=== PATIENT | male | born 1960 | race Caucasian/White ===

== ENCOUNTER 2023-09-14 08:21 | Day surgery (SDC) | payer OTHER, SELFPAY ==
--- NOTE | 2023-09-14 | COLBX_PTH ---
PATIENT: BLANKA DOLAN LOC: EN U#:[id number] AGE/SX: 62/M ROOM: RE09/14/[address]: Dr. Bo Montilla MD : 1960 BED: DIS: 09/14/2023 SPEC #: [id number] RECD: 09/14/23 13:48 STATUS: MAGALI CORONADO #: [id number] JHONY: 09/14/23 00:[address]: Bo Montilla DEPT: SURGICAL PATHOLOGY RECD BY: Hang Russell ENTERED: 09/14/23 13:48 SP TYPE: COLON BX OTHR DR: Dr. Abdulaziz Sunshine MD Tissues: A - Cecum, NOS B - Sigmoid colon biopsy C - Rectum, NOS Procedures: Surgery Specimen Level IV HEADER OPERATION: Colonoscopy with biopsies and polypectomy PRE-OP DIAGNOSIS: Positive colorectal cancer screening using cologaurd TISSUE SUBMITTED: A- Cecum mucosal biopsy, B- Distal sigmoid colon polyp, C- Rectal mucosal nodule biopsy MICROSCOPIC DIAGNOSIS A. Cecum mucosal biopsy: Fragments of colonic mucosa, no pathologic diagnosis. B. Distal sigmoid colon, biopsy: Fragments of hyperplastic polyp. C. Rectal mucosal nodule, biopsy: Fragments of benign squamous mucosa. GALE/ 09/15/23 MICROSCOPIC DESCRIPTION Slides are reviewed. GROSS DESCRIPTION A. Received in fixative is one container labeled with the patient's name and designated Cecal mucosal biopsy. The specimen consists of multiple irregular fragments of light [place] soft tissue that measure in aggreate 0.8 x 0.2 x 0.1 cm. The specimen is totally submitted in one cassette. B. Received in fixative is one container labeled with the patient's name and designated Distal sigmoid colon polyp. The specimen consists of multiple irregular fragments of light [place] soft tissue that in aggregate measure 0.6 x 0.2 x 0.1 cm. The specimen is totally submitted in one cassette. C. Received in fixative is one container labeled with the patient's name and designated Rectal mucosal nodule biopsy. The specimen consists of multiple irregular fragments of light [place] soft tissue that in aggregate measure 0.6 x 0.2 x 0.1 cm. The specimen is totally submitted in one cassette. GAEL/ 09/14/23 TC:5 CPT:46224k7
[2023-09-14 08:56] VITALS: BP 158/62; PULSE 59; RESP 17; TEMP 36.7; O2SAT 100; BMI 23.1
[2023-09-14] MEDS: Lactated Ringers 1,000 ML 15 ML IV (08:56)
--- NOTE | 2023-09-14 10:18 | PCM.HP.BLA ---
History and Physical Date of Service: 07/17/23 MR#: [id number] Acct: [id number] Name: BLANKA MATIAS Rep #: [id number] : 1960 Provider: Dr. Bo Montilla MD Age/Sex: 62/M Location: [facility] Status: Signed Intake Vital Signs 07/17/2407:16 Height 5 ft 8 in Weight: 160 lb BMI 24.3 BP 149/78 H Blood Pressure Location Rt brachial Position Sitting Respiration 18 Pulse 78 Pulse Source Monitor Temp 97.8 F Temp Source Temporal Pulse Oximetry (%) 98 Oxygen Delivery Method room air Intake Visit Reasons: POSITIVE COLOGUARD Chief Complaint: positive cologuard Testing And Regulating Chief Required: No Is patient in pain?: No Allergies No Known Allergies Allergy (Unverified 07/17/23 08:17) Medications hydrochlorothiazide 12.5 mg capsule 12.5 mg PO QAM 07/17/23 [History Confirmed 07/17/23] lovastatin 40 mg tablet 40 mg PO DAILY 07/17/23 [History Confirmed 07/17/23] PFSH Surgical History (Updated 07/17/23 @ 08:15 by Deisi Ventura LPN) S/P hernia repair Social History (Updated 07/17/23 @ 08:16 by Deisi Ventura LPN) Smoking Status: Never smoker alcohol intake: current alcohol intake frequency: holidays/special occasions only substance use type: does not use HPI HPI HPI: Patient is a 62-year-old male who presents for need to schedule diagnostic colonoscopy secondary to positive Cologuard screening. They are referred for surgical consultation from FADI Bruno. Patient has had prior colonoscopy in 2012 which he recalls was normal and all of its findings in 10-year follow-up was given. This most recent testing represents his first Cologuard testing. He was initially convinced that it was positive on the account of his persistently high PSA testing (which is always led to additional testing that is always remain normal despite annual surveillance?including with MRI). They describe their bowel habits as normal. They have approximately 1-2 bowel movements per day without significant straining. They have not noticed recent bleeding or dark stools. They do not regularly take fiber supplements. They consume a moderate amount of fiber in their regular diet with foods such as oatmeal and salads. Patient has no family history of colon cancer, inflammatory bowel disease, or diverticulitis. The patient's weight is stable. The patient is not prescribed anticoagulants/blood thinners. Relevant prior abdominal surgical history includes: Bilateral inguinal hernia repairs Patient does have a significant history of GERD. He states that in the last 2 months his recommended that he begin pfyr-mdt-qrqcbmd omeprazole for his symptoms (she is a nurse) and this has resulted in complete resolution of his symptoms which she previously experienced at a frequency interval of 1-2 times per week. He states that he generally cuts out caffeine by 3 PM each afternoon simply due to its effects on his sleep quality, but has not cut out spicy foods and, in fact, he enjoys Italian food on an almost daily basis. He is not propping his head at night but does try to space bedtime from mealtime by have at least 3 hours. ROS General General: No weight change, appetite, fatigue, colon cancer, breast cancer or weakness HEENT HEENT: No difficulty swallowing, eye injury, eye surgery, swollen glands or hoarseness Endo Endocrine: No thyroid disease, diabetes mellitus, thyroid cancer, Hair loss, heat intolerance or cold intolerance Skin Skin: No rash or changing moles Musc Musculoskeletal: No back problems, arthritis, rheumatoid arthritis, gout or joint pain Cardio Cardiovascular: Yes high blood pressure; No murmur, pacemaker, heart disease, atrial fibrillation, heart attack, heart stent, palpitations, shortness of breat with exertion or chest pain Psych Psychiatric: No depression, anxiety or hearing voices Resp Respiratory: No shortness of breath, No sleep apnea, No cough, No COPD, No asthma, No emphysema and No wheezing Gastro Gastrointestinal: No abdominal pain, No nausea or vomiting, No diarrhea, No constipation, No blood in stool, Yes acid reflux, No hemorrhoids, No ulcers, No gallbladder problem and No black,tarry stools James Hematologic: No blood thinners, No blood disorders, No bleeding, No anemia and No blood clots Neuro Neurologic: No tingling and No weakness Exam Const General: cooperative, comfortable and no acute distress Orientation: alert, awake and oriented x3 Resp Effort & Inspection: normal respiratory effort GI Other: Slender, no scars, nondistended, soft, nontender to palpation x 4 quadrants Assessment and Plan Assessment and Plan (1) Positive colorectal cancer screening using Cologuard test: Status: Acute Comment: Patient is a 62-year-old male, who is at average risk for colon cancer per history, who presents for follow-up of a positive Cologuard test. He has a history of prior negative colonoscopy 11 years ago and denies any new changes to his bowel habits. He suggest that he was under the impression that his positive PSA testing could have led to a false positive with his Cologuard testing. I have shared with him that I am unaware of a connection between these 2 tests and instead informed him of the importance of following up with positive Cologuard test with colonoscopy. Given that he is familiar with the procedure we simply reviewed the procedure and a high level and discussed need to proceed with a 2-day bowel prep and the expectations around the procedure itself. At the conclusion of this description Mr. Matias denied any further questions. Plan: Plan will be to complete colonoscopy on first mutually agreeable date under local MAC. Pre-procedure prep discussed and paper instructions provided. Patient is also made aware that he will need to have a transit bus driver with him the day of the procedure. (2) GERD (gastroesophageal reflux disease): Status: Acute Comment: Patient with history of gastroesophageal reflux that appears to be well-managed since starting PPI medication daily. Patient denies any symptoms since initiating ugif-pai-wrmzkby omeprazole dosing. He confirms that he is taking this on a daily basis. With this complete symptomatic response I find no indication to pursue EGD concurrent with planned colonoscopy as above I have examined the patient and the H&P has been reviewed. There are no clinical changes since date of exam. Mr. Matias confirms that he has not experienced any changes to his bowel habits. He does confirm that he completed bowel prep in anticipation of today's procedure. He also reports that his output is clear but colored yellow/orange. He denies any questions about our plans today. Will therefore proceed to endoscopy suite for diagnostic colonoscopy following positive Cologuard testing.
[2023-09-14 11:00] VITALS: BP 126/65; BP 158/62; PULSE 80; RESP 16; TEMP 36.3; O2SAT 98
--- NOTE | 2023-09-14 11:02 | OP.COLON_ITS ---
Patient Name: Etienne Matias Procedure Date: 09/14/2023 10:09 AM Date of : 1960 Age: 62 Procedure: Colonoscopy Indications: Positive Cologuard test Providers: Bo Montilla MD Referring MD: Abdulaziz Sunshine Medicines: See the Anesthesia note for documentation of the administered medications Patient Profile: Refer to note in patient chart for documentation of history and physical. Last Colonoscopy: more than 10 years ago. Complications: No immediate complications. Estimated blood loss: Minimal. Procedure: Pre-Anesthesia Assessment: - The heart rate, respiratory rate, oxygen saturations, blood pressure, adequacy of pulmonary ventilation, and response to care were monitored throughout the procedure. After I obtained informed consent, the scope was passed under direct vision. Throughout the procedure, the patient's blood pressure, pulse, and oxygen saturations were monitored continuously. The Colonoscope was introduced through the anus and advanced to the cecum, identified by appendiceal orifice and ileocecal valve. The colonoscopy was performed without difficulty. The patient tolerated the procedure well. The quality of the bowel preparation was good. Scope In: 10:25:36 AM Scope Withdrawal Time 0 hours 22 minutes 6 seconds Scope Out: 10:53:52 AM Total Procedure Duration Time 0 hours 28 minutes 16 seconds Findings: The ileocecal valve was moderately lipomatous. No biopsies or other specimens were collected for this exam. A localized area of mildly erythematous mucosa was found in the cecum. Biopsies were taken with a cold forceps for histology. Estimated blood loss was minimal. An 8 mm, non-bleeding polyp was found in the distal sigmoid colon. The polyp was semi-pedunculated. The polyp was removed with a hot snare. Resection and retrieval were complete. Estimated blood loss: none. One 7 mm mucosal nodule was found in the rectum. Biopsies were taken with a cold forceps for histology. Estimated blood loss was minimal. The digital rectal exam findings include enlarged prostate. Pertinent negatives include normal sphincter tone. Impression: - Lipomatous ileocecal valve. No specimens collected. - Erythematous mucosa in the cecum. Biopsied. - One 8 mm, non-bleeding polyp in the distal sigmoid colon, removed with a hot snare. Resected and retrieved. - Mucosal nodule in the rectum. Biopsied. - Enlarged prostate found on digital rectal exam. Recommendation: - Discharge patient to home (via wheelchair). - Resume previous diet today. - No aspirin, ibuprofen, naproxen, or other non-steroidal anti-inflammatory drugs for 2 days after biopsy. - Await pathology results. - Repeat colonoscopy date to be determined after pending pathology results are reviewed for surveillance based on pathology results. - Telephone my office for pathology results in 1 week. Procedure Code(s): --- Professional --- 73322, Colonoscopy, flexible; with removal of tumor(s), polyp(s), or other lesion(s) by snare technique 44355, 59, Colonoscopy, flexible; with biopsy, single or multiple Diagnosis Code(s): --- Professional --- K63.89, Other specified diseases of intestine D12.5, Benign neoplasm of sigmoid colon K62.89, Other specified diseases of anus and rectum R19.5, Other fecal abnormalities N40.0, Benign prostatic hyperplasia without lower urinary tract symptoms CPT copyright 2021 [employer]. All rights reserved. The codes documented in this report are preliminary and upon pre coder review may be revised to meet current compliance requirements. Bo Montilla MD 09/14/2023 11:01:34 AM This report has been signed electronically. Number of Addenda: 0 Note Initiated On: 09/14/2023 10:09 AM
--- NOTE | 2023-09-14 11:02 | OP.CCLET_ITS ---
09/14/2023 Abdulaziz Sunshine [address] [place] [address] [place] [address] Re : Colonoscopy procedure for Etienne Polly Dear Dr. Sunshine This procedure was performed on August. My impressions and recommendations are as follows: Impressions : - Lipomatous ileocecal valve. No specimens collected. - Erythematous mucosa in the cecum. Biopsied. - One 8 mm, non-bleeding polyp in the distal sigmoid colon, removed with a hot snare. Resected and retrieved. - Mucosal nodule in the rectum. Biopsied. - Enlarged prostate found on digital rectal exam. Recommendations : - Discharge patient to home (via wheelchair). - Resume previous diet today. - No aspirin, ibuprofen, naproxen, or other non-steroidal anti-inflammatory drugs for 2 days after biopsy. - Await pathology results. - Repeat colonoscopy date to be determined after pending pathology results are reviewed for surveillance based on pathology results. - Telephone my office for pathology results in 1 week. My findings are described in the full procedure note, which is enclosed. If I can be of further assistance, please feel free to contact me at Doctor phone number(s): , Work: . Sincerely, Bo Montilla MD 09/14/2023 11:01:34 AM This report has been signed electronically.
[2023-09-14 11:05] VITALS: BP 119/66; BP 158/62; PULSE 81; RESP 16; O2SAT 98
[2023-09-14 11:10] VITALS: BP 135/62; BP 158/62; PULSE 72; RESP 16; TEMP 36.1; O2SAT 99
[2023-09-14 11:30] VITALS: BP 158/62
== END 2023-09-14 11:32 | disposition home or self-care (01) ==
LOC: EN 08:23 → AC 08:23
PROVIDERS: PCP Family Medicine; Referring Provider Family Medicine; Visit Provider Surgery
PROC: 0DJD8ZZ Inspection of Lower Intestinal Tract, Via Natural or Artificial Opening Endoscopic (ICD-10-PCS; CPT 45378; principal; 2023-09-14 09:25)
DX: D12.5 Benign neoplasm of sigmoid colon (principal); N40.0 Benign prostatic hyperplasia without lower urinary tract symptoms; K63.89 Other specified diseases of intestine; K62.89 Other specified diseases of anus and rectum; R19.5 Other fecal abnormalities; K21.9 Gastro-esophageal reflux disease without esophagitis
CPT/HCPCS: 45385; 45380; 88305; J7120; J2405

== ENCOUNTER → 2025-02-17 | Outpatient (CLI) | payer OTHER, SELFPAY ==
--- OUTSIDE RECORDS SUMMARY | 2025-02-12 02:50 | XMS RPT_ITS ---
Author Name Auto Generated Organization [facility] Care Team Providers Care Cia Agent Name Role Phone FRANCISCO MEDINA Admitting Unavailable SP NUNN Consulting Unavailable [place] [facility] Primary Care Unavailable [facility] Attending Unavailable PROVIDER, UNKNOWN Consulting Unavailable PROVIDER, UNKNOWN Consulting Unavailable PROVIDER, UNKNOWN Consulting Unavailable [place] Admitting Unavailable [facility] Primary Care Unavailable [place] FRANCISCO Attending Unavailable SP NUNN Consulting Unavailable PROVIDER, UNKNOWN Consulting Unavailable PROVIDER, UNKNOWN Consulting Unavailable PROVIDER, UNKNOWN Consulting Unavailable Tito GREGG Attending Unavailable SP NUNN Consulting Unavailable SP NUNN Referring Unavailable Tito GREGG Admitting Unavailable Tito GREGG Primary Care Unavailable PROVIDER, UNKNOWN Consulting Unavailable PROVIDER, UNKNOWN Consulting Unavailable PROVIDER, UNKNOWN Consulting Unavailable PROBLEMS DATE TYPE CONDITION / CODE ATTENDING STATUS [facility] 07/01/2024 Principle Diagnosis Mixed hyperlipidemia / E782(ICD-10) FRANCISCO MEDINA Active 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(ICD-10) [place] [facility] 07/01/2024 Secondary Diagnosis Encounter for screening for malignant neoplasm of prostate / Z125(ICD-10) [facility] PROCEDURES No Procedure Records Found RESULTS PSA TOTAL 86449 (CANCER/ELEVATED) Colle cted: 02/12/2025 8:07 AM Status: F Source: [facility] TYPE CODE TESTS RESULT OUT OF RANGE REFERENCE UNITS LAB PSA(LOINC) PSA <0.13 0.00 - 4.00 ng/ml Performed By: #### [id number] ## ## [place] [id number] TIBIA-FIBULA LT Observed: 09/11/2024 3:37 PM Status: F Source: [place] [id number] Patient: BLANKA DOLAN Phone#: : 1960 Age: 63 Gender: M Pt. Type: Out Account: [id number] Location: Ordering: [facility] Exam Date: 09/11/2024/15:18 Family Phys: SP NUNN Charge Code: [id number] Physician: Faulk Order #: [id number] Dose#: PROCEDURE: X-RAY TIB FIB LT 2 VIEWS COMPARISON: None. INDICATIONS: Left leg pain. FINDINGS: BONES: Normal. No significant arthropathy or acute abnormality. SOFT TISSUES: Negative. No visible soft tissue swelling. EFFUSION: None visible. OTHER: Negative. CONCLUSION: No acute disease. Dictated by: Althea Walker MD on 09/11/2024 at 16:46 Approved by: Althea Walker MD on 09/11/2024 at 16:47 LUMBO SACRAL COMPLETE MIN 4 VIEWS Observed: 09/11/2024 3:36 PM Status: F Source: [place] [address] Patient: BLANKA DOLAN Phone#: : 1960 Age: 63 Gender: M Pt. Type: Out Account: [id number] Location: Ordering: [facility] Exam Date: 09/11/2024/15:21 Family Phys: SP NUNN Charge Code: [id number] Physician: Faulk Order #: [id number] Dose#: PROCEDURE: X-RAY LUMBAR SPINE COMPLETE MIN 4 VIEWS COMPARISON: None. INDICATIONS: Low back pain. FINDINGS: BONES: Mild to moderate degenerative changes of the spine are present most marked at the L5-S1 level. DISC SPACES: Disc space narrowing is present at the L4-5 and L5-S1 levels. Vacuum phenomenon is present at L5-S1. PARASPINOUS: Negative. No paraspinous abnormality is seen. OTHER: Negative. CONCLUSION: 1. Wppq-hg-bhcwvzsf degenerative changes of the spine are present. 2. There is no evidence of acute abnormality. Dictated by: Althea Walker MD on 09/11/2024 at 16:47 Approved by: Althea Walker MD on 09/11/2024 at 16:48 KNEE COMPLETE LT MIN 4 VIEWS Observed: 0 09/11/2024 3:35 PM Status: F Source: [place] [address] Patient: BLANKA DOLAN Phone#: : 1960 Age: 63 Gender: M Pt. Type: Out Account: [id number] Location: Ordering: [facility] Exam Date: 09/11/2024/15:06 Family Phys: SP NUNN Charge Code: [id number] Physician: Faulk Order #: [id number] Dose#: PROCEDURE: X-RAY KNEE LT COMPLETE 4 VIEWS COMPARISON: None. INDICATIONS: Left leg pain. FINDINGS: BONES: Normal. No significant arthropathy or acute abnormality. SOFT TISSUES: Negative. No visible soft tissue swelling. EFFUSION: Small suprapatellar joint effusion is present. OTHER: Negative. CONCLUSION: No acute disease. Dictated by: Althea Walker MD on 09/11/2024 at 16:36 Approved by: Althea Walker MD on 09/11/2024 at 16:36 CMP WITH EGFR Collected: 8:15 AM Status: F Source: [facility] TYPE CODE TESTS RESULT OUT OF RANGE REFERENCE UNITS LAB CMP with eGFR(LOINC) CMP with eGFR Result Comment: COMPREHENSIV E METABOLIC PANEL LAB SODIUM(LOINC) SODIUM 139 136 - 145 mmol/l LAB POTASSIUM(LOIN C) POTASSIUM 4.3 3.5 - 5.1 mmol/L LAB CHLORIDE(LOINC ) CHLORIDE 100 98 - 107 mmol/L LAB CO2(LOINC) CO2 29.1 21.0 - 32.0 mmol/L LAB GLUCOSE(LOINC) GLUCOSE 88 74 - 106 mg/dl LAB BUN(LOINC) BUN 16 7 - 18 mg/dl LAB CREATININE(BENIGNO NC) CREATININE 1.21 0.70 - 1.30 mg/dl LAB AST/SGOT(LOINC ) AST/SGOT 27 15 - 37 U/L LAB ALK PHOS(LOINC) ALK PHOS 98 46 - 116 U/L LAB CALCIUM(LOINC) CALCIUM 9.6 8.5 - 10.1 mg/dl LAB TOTAL PROTEIN(LOINC) TOTAL PROTEIN 8.5 High 6.4 - 8.2 g/dl LAB ALBUMIN(LOINC) ALBUMIN 4.1 3.4 - 5.0 g/dL LAB GLOBULIN(LOINC ) GLOBULIN 4.4 High 1.5 - 3.8 G/DL LAB A/G RATIO(LOINC) A/G RATIO 0.9 0.9 - 1.6 LAB TOTAL BILI(LOINC) TOTAL BILI 0.9 0.2 - 1.0 mg/dl LAB B/C RATIO(LOINC) B/C RATIO 13 0 - 30 ratio LAB ALT/SGPT(LOINC ) ALT/SGPT 25 16 - 63 U/L LAB ANION GAP(LOINC) ANION GAP 14 10 - 20 mmol/L LAB AGE(LOINC) AGE 63 years LAB eGFR(LOINC) eGFR 60 60 - 999 ML/MINUT E LAB eGFR(AA)(LOINC ) eGFR(AA) >60 60 - 999 ML/MINUT E Result Comment: ACCORDING TO THE NATIONAL KIDNEY DISEASE EDUCATION PROGRAM(NKDE), A NORMAL eGFR IS A VALUE GREATER THAN OR EQUAL TO 60 ML/MIN/1.73 SQ METERS. CHRONIC KIDNEY DISEASE: <60mL/MIN/1.73 SQ METERS KIDNEY FAILURE: <15mL/MIN/1.73 SQ METERS THIS TEST SHOULD ONLY BE USED FOR PATIENTS 18 YEARS OF AGE AND OLDER. Performed By: #### [id number] ## ## [address] [address] PSA CANCER SCREENING (G0103) Collected: 07/01/2024 8: 15 AM Status: F Source: [facility] TYPE CODE TESTS RESULT OUT OF RANGE REFERENCE UNITS LAB PSA CANCER SCREENING (G0103)(LOINC) PSA CANCER SCREENING (G0103) Result Comment: SEE SCANNED REPORT Performed By: #### [id number] ## ## [address] [address] LIPID PROFILE Collected: 07/01/2024 8:15 AM Status: F Source: [facility] TYPE CODE TESTS RESULT OUT OF RANGE REFERENCE UNITS LAB LIPID PROFILE(LOINC) LIPID PROFILE Result Comment: LIPID PROFIL E SEE SCANNED REPORT Performed By: #### [id number] ## ## [address] [address] ALLERGIES DATE TYPE / CODE NAME / CODE REACTION SEVERITY SOURCE Miscellaneous Allergy/[id number]([facility] ED CT) No Known Drug Allergies Moderate (Severity Modifier) (Qualifier Value) [facility] ENCOUNTERS ADMIT/DISCHARGE ACCOUNT NUMBER ADMITTING ENCOUNTER CLASS LOCATION SOURCE 02/12/2025/ 5 [id number] Tito GREGG Ambulatory Building:[facility] 09/11/2024/ 5 [id number] [facility] Ambulatory Building:[facility] 07/01/2024/ 5 [id number] [facility] Ambulatory Building:[facility] PAYERS ENCOUNTER GUARANTOR PAYER SUBSCRIBER SOURCE 02/12/2025 BLANKA WILKES: [id number] [address], [place] [address]Iuo: () [facility] OUT[facility]IENTPolicy Number: [id number] Date:Plan Name:C8 BLANKA Zelaya GILMARB: [id number] [facility] [place] [address] [facility] 09/11/2024 BLANKA Zelaya GILMARB: [id number] [facility] [place] [address]Vun: (HP) Primary Insurance:[facility] OUTPATIENTPolicy Number: [id number] Date:Plan Name:C8 BLANKA Zelaya GILMARB: [id number] [address] [address] [facility] 07/01/2024 BLANKA Zelaya GILMARB: [id number] [facility] [place] [address]Nsu: (HP) Primary Insurance:[facility] SERVICESPolicy Number: [id number] Date:Plan Name:C8 BLANKA Zelaya GILMARB: [id number] [facility] [place] [address] [facility]
[2025-02-17 09:56] LABS: PSA,Total- Diagnostic 14.80 ng/mL (0.00-4.00)
== END | disposition home or self-care (01) ==
LOC: LAB 08:36
PROVIDERS: PCP Family Medicine; Referring Provider Urology; Visit Provider Urology
DX: N40.0 Benign prostatic hyperplasia without lower urinary tract symptoms (principal)
CPT/HCPCS: 36415; 84153